=== PATIENT | male | born 1975 | race Native Hawaiian/Other Pacific Islander ===

== ENCOUNTER 2017-02-20 13:41 | Emergency (ER) | payer OTHER, MEDICARE, MEDICAID ==
[2017-02-20] MEDS ORDERED: MORPHINE SULFATE 8 MG/ML INJ ONE (13:45)
[2017-02-20] MEDS ORDERED: DIPHTH/TETANUS/ACEL PERTUSSIS (BOOSTER) 0.5 ML VIAL/PFS IM ONE (13:47)
[2017-02-20 13:53] VITALS: O2SAT 99
[2017-02-20 13:54] VITALS: O2SAT 99
[2017-02-20 14:02] LABS: AUTOMATED NEUTROPHIL # 3.4 TH/MM3 (1.8-7.7); BASOPHIL % 0.3 % (0.0-2.0); EOSINOPHIL # 0.1 TH/MM3 (0-0.4); LYMPH % 31.7 % (9.0-44.0); LYMPHOCYTE # 1.9 TH/MM3 (1.0-4.8); MEAN CELL VOLUME 92.1 FL (80.0-100.0); MEAN CORPUSCULAR HGB CONC 33.7 % (32.0-36.0); MONO % 10.5 % (0.0-8.0); NEUT % 56.5 % (16.0-70.0); PLATELET COUNT 295 TH/MM3 (150-450); RED BLOOD COUNT 3.69 MIL/MM3 (4.50-5.90); RED CELL DISTRIBUTION WIDTH 14.6 % (11.6-17.2)
[2017-02-20 14:05] LABS: HEMO FLAGS AUTO DIFF; I-STAT POTASSIUM 3.4 MMOL/L (3.5-4.9)
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
[2017-02-20 14:09] LABS: APTT (PATIENT) 28.2 SEC (24.3-30.1); PROTHROMBIN TIME - PATIENT 11.3 SEC (9.8-11.6)
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
[2017-02-20] MEDS ORDERED: IOHEXOL 350 MG/ML 10 ML VIAL (for RAD DIAG) IVCONTRAST ONE (14:20)
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
[2017-02-20 14:32] VITALS: BP 129/79; PULSE 77; RESP 20
[2017-02-20 14:38] LABS: BANDS 3 % (0-6); METAMYELOCYTES 3 % (0-1); MYELOCYTES 2 % (0-0); NEUTROPHIL # MANUAL DIFF 3.9 TH/MM3 (1.8-7.7); PLATELET ESTIMATE SMEAR NORMAL (NORMAL); PLATELET MORPHOLOGY NORMAL (NORMAL); POLYS (SEG NEUTROPHILS) 57 % (16-70); SCAN/DIFF FINAL DIFF MANUAL; WBC DIFF SAMPLE 100
[2017-02-20 14:40] VITALS: O2SAT 98
[2017-02-20] MEDS ORDERED: TRIL600T PO (14:43)
[2017-02-20] MEDS ORDERED: PANT20TA2 PO (14:43)
[2017-02-20] MEDS ORDERED: FERR325C PO (14:43)
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
[2017-02-20] MEDS ORDERED: OXcarbazepine 600 MG TAB PO ONE (14:45)
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
== END 2017-02-20 15:21 | disposition home or self-care (01) ==
LOC: EDBD 13:41 → NEPI 13:41 → NEDA 14:19 → UNDOADMIN 14:19 → UNDODISIN 15:21 → NEPI 15:21
DX: S09.90XA Unspecified injury of head, initial encounter (principal); R04.0 Epistaxis; R41.3 Other amnesia; R45.1 Restlessness and agitation; R10.9 Unspecified abdominal pain; M54.5 Low back pain; N19 Unspecified kidney failure; I10 Essential (primary) hypertension; V89.2XXA Person injured in unspecified motor-vehicle accident, traffic, initial encounter; Z23 Encounter for immunization; Z86.69 Personal history of other diseases of the nervous system and sense organs; Z87.39 Personal history of other diseases of the musculoskeletal system and connective tissue
CPT/HCPCS: 70450; 70486; 71010; 71260; 72125; 72170; 74177; 82435; 82565; 82947; 84132; 84295; 84520; 85007; 85027; 85610; 85730; 86850; 86900; 86901; 90471; 90715; 96374; 99285; 99291; J2270; Q9967; G0390

== ENCOUNTER 2017-03-25 10:05 | Emergency (ER) | payer MEDICARE ==
[~2017-03-25] VITALS: Ht 180.3 cm; Wt 110.0 kg
[~2017-03-25 10:05] MED LIST: FERR325C PO; PANT20TA2 PO; TRIL600T PO
[2017-03-25 10:12] VITALS: BP 138/80; PULSE 75; RESP 18; TEMP 98.1; O2SAT 100
--- NOTE | 2017-03-25 10:18 | PD ---
HPI Chief Complaint: Chest Pain Time Seen by Provider: 10:18 Travel History International Travel<30 days: No Contact w/Intl Traveler<30days: No Traveled to known affect area: No History of Present Illness HPI 41-year-old male who has end-stage renal disease and hemodialysis dependent just had his dialysis done today. His lodge attendant is Dr. Pryor. As per the patient and he was sent at the professional building for some blood test. Patient is not sure what blood test. But while he was there he started having chest pain and then passed out. Currently patient is awake and denies any chest pain. He pointed substernally as the location of the pain. No radiation. He was brought in by the staff of emergency response team. Vital signs currently are stable. Patient denies any similar symptoms in the past. No history of stress test in the past. No history of coronary artery disease. Patient is not a smoker. Patient has history of seizure disorder. However there was no report given if there was any witnessed seizure. [facility] Past Medical History Narrative Medical List of his past medical, surgical, social and family history is reviewed from the nursing note. GERD: Yes Neurologic: Yes (EPILEPSY ) Seizures: Yes Social History Alcohol Use: No Tobacco Use: No Substance Use: No Allergies-Medications (Allergen,Severity, Reaction): Coded Allergies: lisinopril (Verified Allergy, Unknown, 03/25/17) Comments List of his allergies reviewed from the nursing note. Reported Meds & Prescriptions Reported Meds & Active Scripts Active Reported Pantoprazole (Pantoprazole Sodium) 20 Mg Tab 20 Mg PO DAILY Trileptal (Oxcarbazepine) 600 Mg Tab 600 Mg PO TID Narrative Medication List of his home medications reviewed from the nursing note. Review of Systems Except as stated in HPI: all other systems reviewed are Neg Physical Exam Narrative GENERAL: Lethargic but slowly answering questions. Moderate distress. SKIN: Focused skin assessment warm/dry. Pale HEAD: Atraumatic. Normocephalic. EYES: Pupils equal and round. No scleral icterus. No injection or drainage. ENT: No nasal bleeding or discharge. Mucous membranes pink and moist. NECK: Trachea midline. No JVD. CARDIOVASCULAR: Regular rate and rhythm. No murmur appreciated. RESPIRATORY: No accessory muscle use. Clear to auscultation. Breath sounds equal bilaterally. GASTROINTESTINAL: Abdomen soft, non-tender, nondistended. Hepatic and splenic margins not palpable. MUSCULOSKELETAL: No obvious deformities. No clubbing. No cyanosis. No edema. NEUROLOGICAL: Awake and alert. No obvious cranial nerve deficits. Motor grossly within normal limits. Normal speech. PSYCHIATRIC: Appropriate mood and affect; insight and judgment normal. Data Data Last Documented VS Vital Signs Date Time Temp Pulse Resp B/P (MAP) Pulse Ox O2 Delivery O2 Flow Rate FiO2 03/25/17 13:14 100 03/25/17 12:00 70 16 Nasal Cannula 2.00 03/25/17 10:12 98.1 Orders Orders Electrocardiogram (03/25/17 10:23) Basic Metabolic Panel (Bmp) (03/25/17 10:23) Ckmb (Isoenzyme) Profile (03/25/17 10:23) Complete Blood Count With Diff (03/25/17 10:23) Magnesium (Mg) (03/25/17 10:23) Prothrombin Time / Inr (Pt) (03/25/17 10:23) Act Partial Throm Time (Ptt) (03/25/17 10:23) Troponin I (03/25/17 10:23) Chest, Single Ap (03/25/17 10:23) Ecg Monitoring (03/25/17 10:23) Bilateral Bp Monitoring (03/25/17 10:23) Iv Access Insert/Monitor (03/25/17 10:23) Oximetry (03/25/17 10:23) Oxygen Administration (03/25/17 10:23) Aspirin Chew (Aspirin Chew) (03/25/17 10:30) Sodium Chloride 0.9% Flush (Ns Flush) (03/25/17 10:30) Sodium Chlorid 0.9% 500 Ml Inj (Ns 500 M (03/25/17 10:30) Ct Brain W/O Iv Contrast(Rout) (03/25/17 ) Potassium Chloride (Kcl) (03/25/17 11:30) Labs Laboratory Tests Test 03/25/17 10:25 White Blood Count 3.8 TH/MM3 Red Blood Count 3.34 MIL/MM3 Hemoglobin 10.3 GM/DL Hematocrit 30.9 % Mean Corpuscular Volume 92.5 FL Mean Corpuscular Hemoglobin 30.8 PG Mean Corpuscular Hemoglobin Concent 33.3 % Red Cell Distribution Width 14.9 % Platelet Count 234 TH/MM3 Mean Platelet Volume 7.1 FL Neutrophils (%) (Auto) 42.2 % Lymphocytes (%) (Auto) 40.9 % Monocytes (%) (Auto) 12.1 % Eosinophils (%) (Auto) 3.7 % Basophils (%) (Auto) 1.1 % Neutrophils # (Auto) 1.6 TH/MM3 Lymphocytes # (Auto) 1.6 TH/MM3 Monocytes # (Auto) 0.5 TH/MM3 Eosinophils # (Auto) 0.1 TH/MM3 Basophils # (Auto) 0.0 TH/MM3 CBC Comment DIFF FINAL Differential Comment Prothrombin Time 11.4 SEC Prothromb Time International Ratio 1.0 RATIO Activated Partial Thromboplast Time 34.5 SEC Blood Urea Nitrogen 21 MG/DL Creatinine 3.79 MG/DL Random Glucose 85 MG/DL Calcium Level 7.9 MG/DL Magnesium Level 2.1 MG/DL Sodium Level 133 MEQ/L Potassium Level 3.1 MEQ/L Chloride Level 96 MEQ/L Carbon Dioxide Level 28.0 MEQ/L Anion Gap 9 MEQ/L Estimat Glomerular Filtration Rate 18 ML/MIN Total Creatine Kinase 78 U/L Troponin I LESS THAN 0.02 NG/ML MDM Medical Decision Making Medical Screen Exam Complete: Yes Emergency Medical Condition: Yes Medical Record Reviewed: Yes Interpretation(s) Twelve-lead EKG was reviewed by me. Normal sinus rhythm, normal axis, interventricular conduction delay, nonspecific ST-T wave changes. Heart rate of 69 bpm. Differential Diagnosis Seizure, ACS, non-STEMI, intracranial bleed Narrative Course 10:56 AM awaiting for the blood test result. Awaiting for the CT scan to be done and resulted. Patient will require admission at least to rule out chest pain. 11:31 AM blood test results are back. Potassium is slightly low which I have ordered for replacement. Patient is getting IV fluid bolus. Troponin is negative. Given the syncope and possibility of seizure I would like to admit him medically and rule out ACS. Head CT shows postsurgical changes but otherwise negative 11:36 AM I just went to discuss all his test results and to tell him that I would like to keep him for 24-hour observation. She does not think he had a seizure because he usually gets an aura before this happens which he did not today. However patient said that he needs some things to be done and cannot stay. I explained to him the risks of leaving since all these could very well be cardiac which could be ruled out by staying in the hospital. He understands the risk which in the worse case scenario could be . He will sign AMA. Patient is in full capacity to make decisions for himself. Procedures EKG Prior to Arrival: No Diagnosis Primary Impression: Syncope Qualified Codes: R55 - Syncope and collapse Additional Impressions: Chest pain Qualified Codes: R07.9 - Chest pain, unspecified End stage renal disease Dependent on hemodialysis Hypokalemia Disposition: 07 AGAINST MEDICAL ADVICE Condition: Serious Sandy Baker MD Mar 25, 2017 10:18
[2017-03-25 10:23] VITALS: BP 138/80
[2017-03-25] MEDS ORDERED: SODIUM CHLORID 0.9% 500 ML INJ 500 ML IV ONE (10:30)
[2017-03-25] MEDS ORDERED: SODIUM CHLORIDE 0.9% FLUSH 10 ML FLUSH IVF PRN (10:30)
[2017-03-25] MEDS ORDERED: ASPIRIN 81 MG CHEW TAB PO ONE (10:30)
[2017-03-25 10:49] LABS: AUTOMATED NEUTROPHIL # 1.6 TH/MM3 (1.8-7.7); BASOPHIL % 1.1 % (0.0-2.0); EOSINOPHIL # 0.1 TH/MM3 (0-0.4); EOSINOPHIL % 3.7 % (0.0-4.0); HEMATOCRIT 30.9 % (39.0-51.0); HEMO FLAGS DIFF FINAL; LYMPH % 40.9 % (9.0-44.0); LYMPHOCYTE # 1.6 TH/MM3 (1.0-4.8); MEAN CELL VOLUME 92.5 FL (80.0-100.0); MEAN CORPUSCULAR HEMOGLOBIN 30.8 PG (27.0-34.0); MEAN CORPUSCULAR HGB CONC 33.3 % (32.0-36.0); MONO % 12.1 % (0.0-8.0); NEUT % 42.2 % (16.0-70.0); PLATELET COUNT 234 TH/MM3 (150-450); RED BLOOD COUNT 3.34 MIL/MM3 (4.50-5.90); RED CELL DISTRIBUTION WIDTH 14.9 % (11.6-17.2); WHITE BLOOD COUNT 3.8 TH/MM3 (4.0-11.0)
--- NOTE | 2017-03-25 10:55 | RADRPT ---
EXAM DATE/TIME: 03/25/2017 10:33 [facility] COMPARISON: CHEST SINGLE AP, February 20, 2017, 13:36. INDICATIONS : Center chest pain. MEDICAL HISTORY : None. SURGICAL HISTORY : AV fistula ENCOUNTER: Initial ACUITY: 1 day PAIN SCORE: 7/10 LOCATION: Bilateral chest FINDINGS: A single view of the chest demonstrates the lungs to be symmetrically aerated without evidence of mas s, infiltrate or effusion. The cardiomediastinal contours are unremarkable. Osseous structures are intact. CONCLUSION: 1. No acute cardiopulmonary disease. Ruben Brown MD on March 25, 2017 at 10:52 Board Certified Radiologist. This report was verified electronically.
[2017-03-25 10:58] LABS: APTT (PATIENT) 34.5 SEC (24.3-30.1); PROTHROMBIN TIME - PATIENT 11.4 SEC (9.8-11.6)
[2017-03-25 11:00] VITALS: BP 151/85; PULSE 73; RESP 18; O2SAT 100
[2017-03-25 11:04] LABS: ANION GAP 9 MEQ/L (5-15); BLOOD UREA NITROGEN 21 MG/DL (7-18); CHLORIDE 96 MEQ/L (98-107); GLOMERULAR FILTRATION RATE 18 ML/MIN (>89); MAGNESIUM 2.1 MG/DL (1.5-2.5); POTASSIUM 3.1 MEQ/L (3.5-5.1); SODIUM (NA) 133 MEQ/L (136-145)
[2017-03-25 11:22] LABS: CREATINE KINASE 78 U/L (39-308)
--- NOTE | 2017-03-25 11:29 | RADRPT ---
EXAM DATE/TIME: 03/25/2017 11:09 [facility] COMPARISON: CT BRAIN W/O CONTRAST, February 20, 2017, 13:59. INDICATIONS : Syncopal episode post dialysis this morning RADIATION DOSE: 42.23 CTDIvol (mGy) MEDICAL HISTORY : Seizures. Hypertension. Gastric sleeve SURGICAL HISTORY : Left upper arm shunt,brain surgery ENCOUNTER: Initial ACUITY: 1 day PAIN SCALE: 0/10 LOCATION: cranial TECHNIQUE: Multiple contiguous axial images were obtained of the head. Using automated exposure control and adj ustment of the mA and/or kV according to patient size, radiation dose was kept as low as reasonably a chievable to obtain optimal diagnostic quality images. DICOM format image data is available electro nically for review and comparison. FINDINGS: CEREBRUM: Postsurgical features of prior left temporal craniotomy with left anterior temporal lobe encephalomal acia. The ventricles are normal for age. No evidence of midline shift, mass lesion, hemorrhage or ac arthur infarction. No extra-axial fluid collections are seen. POSTERIOR FOSSA: The cerebellum and brainstem are intact. The 4th ventricle is midline. The cerebellopontine angle i s unremarkable. EXTRACRANIAL: The visualized portion of the orbits is intact. Minimal mucoperiosteal thickening in the right maxill marimar sinus. SKULL: The calvaria is intact. No evidence of skull fracture. CONCLUSION: 1. Stable post surgical features of prior left temporal craniotomy with associated left anterior temp oral lobe encephalomalacia. 2. No acute intracranial abnormality or significant interval change. Ruben Brown MD on March 25, 2017 at 11:25 Board Certified Radiologist. This report was verified electronically.
[2017-03-25] MEDS ORDERED: POTASSIUM CHLORIDE 20 MEQ CONTROLLED RELEASE TAB PO ONE (11:30)
[2017-03-25 12:00] VITALS: BP 154/85; PULSE 70; RESP 16; O2SAT 100
--- NOTE | 2017-03-26 14:41 | EKG ---
Date Performed: 03/25/2017 Time Performed: 10:14:01 PTAGE: 41 years EKG: Sinus rhythm BORDERLINE ECG INTERPRETATION BASED ON A DEFAULT AGE OF 42 YEARS NO PREVIOUS TRACING DOCTOR: Andry Germain Interpretating Date/Time 03/26/2017 14:40:08
== END 2017-03-25 13:15 | disposition left against medical advice (07) ==
LOC: NEPE 10:05
DX: R55 Syncope and collapse (principal); R07.9 Chest pain, unspecified; I12.0 Hypertensive chronic kidney disease with stage 5 chronic kidney disease or end stage renal disease; N18.6 End stage renal disease; Z99.2 Dependence on renal dialysis
CPT/HCPCS: 70450; 71010; 80048; 82550; 83735; 84484; 85025; 85610; 85730; 93005; 96360; 99285; J7040